=== PATIENT | male | born 1960 | race Caucasian/White ===

== ENCOUNTER 2024-11-14 13:35 | Emergency (ER) | payer MEDICARE, OTHER ==
[2024-11-14] MEDS: hydrALAZINE 25 MG Tab PO ONE (14:43)
== END 2024-11-14 14:54 | disposition left against medical advice (07) ==
LOC: MW.ED 13:35
DX: I10 Essential (primary) hypertension (principal); F17.210 Nicotine dependence, cigarettes, uncomplicated; Z79.899 Other long term (current) drug therapy
CPT/HCPCS: 99283; A9270; 99282